=== PATIENT | male | born 1945 | race Caucasian/White ===

== ENCOUNTER 2018-10-31 13:44 | Day surgery (SDC) | payer OTHER ==
[2018-10-30 12:28] VITALS: BMI 27.3
[2018-10-31] MEDS ORDERED: ACETAMINOPHEN 1000 MG/100 ML VIAL (NON FORMULARY) IVPB ONE (15:14)
[2018-10-31] MEDS ORDERED: DEXTROSE 5%-0.45% SALINE 1,000 ML IV SCH (15:15)
[2018-10-31] MEDS ORDERED: PROPOFOL 20 ML ONE ×3 (15:25)
[2018-10-31] MEDS ORDERED: LIDOCAINE HCL/PF 2% SDV 5ML VIAL ONE (15:25)
[2018-10-31] MEDS ORDERED: MIDAZOLAM HCL 2 MG/2 ML SINGLE DOSE VIAL ONE (15:30)
[2018-10-31] MEDS ORDERED: ceFAZolin SODIUM 1 GM VIAL IVPB ONE (15:35)
[2018-10-31] MEDS ORDERED: DEXAMETHASONE SOD PHOSPHATE 4 MG/1 ML VIAL ONE (15:46)
[2018-10-31] MEDS ORDERED: ceFAZolin SODIUM 1 GM VIAL ONE (15:46)
[2018-10-31] MEDS ORDERED: PROMETHAZINE HCL 25 MG/1 ML VIAL IVPUSH PRN (16:21)
[2018-10-31] MEDS ORDERED: oxyCODONE HCL 5 MG TABLET PO PRN (16:21)
[2018-10-31] MEDS ORDERED: ONDANSETRON 4 MG/2 ML VIAL IVPUSH PRN (16:21)
[2018-10-31] MEDS: ACETAMINOPHEN INJECTION 100 ML IVPB ONE ×2 (16:52→17:18)
[2018-10-31] MEDS ORDERED: IBUPROFEN 800 MG/8 ML IJ IVPB SCH (18:00)
[2018-10-31 19:32] VITALS: BP 148/91; PULSE 84; TEMP 97.9
--- NOTE | 2018-11-04 16:17 | PATH ---
Surgical Pathology Report Patient Name: TOMAS HERNANDEZ Med. Rec. #: [id number] /Age/Gender: 1945 (Age: 73) / M Account: [id number] Location: [facility] Taken: 10/31/2018 Received: 11/03/2018 Reported: 11/04/2018 Physicians: Johann Valladares M.D. Specimen(s) Received BLADDER CALCULI Clinical History Bladder stones Final Diagnosis BLADDER STONES, LASER LITHOTRIPSY: BLADDER CALCULI. MACROSCOPIC DIAGNOSIS. Electronically Signed Imani Molina M.D. Gross Description Received fresh labeled "bladder stones," is a 2.5 x 1.6 x 0.4 cm aggregate of flores, irregular to fragmented calculi. The specimen is sent for chemical analysis. /11/03/201811/03/2018
[2018-11-06 17:12] LABS: URIC ACID 100 % (.)
--- NOTE | 2018-11-08 07:13 | OP ---
DATE OF OPERATION: 10/31/2018 PREOPERATIVE DIAGNOSIS: Bladder stones greater than 3 cm. POSTOPERATIVE DIAGNOSIS: Bladder stones greater than 3 cm. PROCEDURE: Cystoscopy, laser litholapaxy of bladder stones. SPECIMENS: Portions of bladder stones. ESTIMATED BLOOD LOSS: None. PREOPERATIVE INDICATIONS: The patient is 73 years old with BPH. He has several large bladder stones. He comes to the OR. DESCRIPTION OF PROCEDURE: The patient was brought to the OR. Placed on the table in the supine position. Given general anesthesia and IV antibiotics and placed in the modified lithotomy position. The groin was prepped and draped sterilely. Cystoscopy was performed. Urethra appeared to be normal. The sphincter was intact. The prostate was enlarged. The bladder was examined. Both UOs were seen. There were 10 bladder stones cumulatively approximately 10 cm in size. No tumors were seen in the bladder. The patient had trabeculations throughout. Using the 1000-micron Holmium laser fiber, all these stones were broken up into small, passable fragments, which were then irrigated out with an Ellik evacuator. At the end of the case, no damage to the bladder was seen, no further stone fragments were seen. The bladder was emptied. The patient was woken up. Tejas [id number]
== END 2018-10-31 18:50 | disposition home or self-care (01) ==
LOC: JASU-SURG 13:44
PROVIDERS: ATTEND Urology
PROC: 0TCB8ZZ Extirpation of Matter from Bladder, Via Natural or Artificial Opening Endoscopic (ICD-10-PCS; principal; 2018-10-31 15:00)
DX: N21.0 Calculus in bladder (principal)
CPT/HCPCS: 36415; 82360; 88300-TC; 94760; J0131